=== PATIENT | female | born 1940 | race Caucasian/White ===

== ENCOUNTER 2018-03-31 10:32 | Inpatient (IN) ==
[2018-03-31] MEDS ORDERED: Sod Chloride 0.9% Inj 1,000 ML IV.SIG ONE (15:59)
--- NOTE | 2018-03-31 16:05 | ED ---
HPI General Chief Complaint: Respiratory Symptoms Stated Complaint: resp complaint/Vomiting/diarrhea/abd pain Time Seen by Provider: 03/31/18 15:40 Source: patient Mode of arrival: ambulatory Limitations: no limitations History of Present Illness HPI narrative: Patient states she has no known drug allergy She does have a history of rheumatoid arthritis and hypothyroidism Patient is on methotrexate for rheumatoid arthritis, has no primary care physician in the area. They are visiting from [place] Patient states that last week she started having a runny nose sore throat cough eventually although symptoms are improved except for the cough which went from dry to productive of yellow-green sputum. Then on Friday she started having nausea vomiting and diarrhea. And on Friday the patient noticed a lump on her right lower abdomen which was tender to palpation. MD complaint: Reports abdominal pain Onset (ago): day(s) Pain Consistency: intermittent Location: Reports RLQ Severity: moderate Severity scale (1-10): 5 Quality: Reports cramping Radiation: Reports none Migration to: Reports no migration Relieving factors: nothing Exacerbating factors: nothing Associated symptoms: Reports nausea, vomiting and diarrhea Related Data Home Medications Medication Instructions Recorded Confirmed folic acid 5 mg PO DAILY 03/31/18 03/31/18 hydroxychloroquine 200 mg PO DAILY 03/31/18 03/31/18 ibuprofen 600 mg PO BID 03/31/18 03/31/18 levothyroxine 75 mcg PO DAILY 03/31/18 03/31/18 ranitidine HCl 150 mg PO BID 03/31/18 03/31/18 Allergies Allergy/AdvReac Type Severity Reaction Status Date / Time No Known Allergies Allergy Verified 03/31/18 16:14 Review of Systems ROS: all other systems reviewed are negative PMFSH History History Provided By: Patient Medical History Medical History Hypothyroidism (Acute) Surgical History Surgical History Hx of tonsillectomy (Acute) Social History Social History Second Hand Smoke Exposure: No Smoking Status: Never smoker How Often Do You Have a Drink Containing Alcohol: Never Recent Travel in [facility] within the Last 8 Weeks: No Recent Out of Country Travel within the Last 8 Weeks: No Exam Narrative Exam Narrative: GENERAL: Well-nourished, well-developed patient in no apparent distress. SKIN: Warm and dry. HEAD: Atraumatic. Normocephalic. EYES: Pupils equal and round. No scleral icterus. No injection or drainage. ENT: No nasal bleeding or discharge. Mucous membranes pink and moist. NECK: Trachea midline. No JVD. CARDIOVASCULAR: Regular rate and rhythm. no rubs or gallops RESPIRATORY: No accessory muscle use. Mild rhonchi bilateral with occasional wheezes. Breath sounds equal bilaterally. GASTROINTESTINAL: Abdomen soft, non-tender, nondistended. No rebound or guarding... However firm tender lump just superior to the right inguinal region , MUSCULOSKELETAL: Extremities without clubbing, cyanosis, or edema. No obvious deformities. NEUROLOGICAL: Awake and alert. No obvious cranial nerve deficits. Motor grossly within normal limits. Five out of 5 muscle strength in the arms and legs. Normal speech. PSYCHIATRIC: Appropriate mood and affect; insight and judgment normal. Course Reevaluation(s) Reevaluation #1: I reviewed the patient's history, exam and laboratory testing. The patient has been seen by Dr. Byrd the surgeon. He has reduce the patient's hernia. He does not feel that this is strangulated. He does agree that it initially was incarcerated but he was able to reduce it with minimal effort. He does not feel the patient requires emergent surgery. He would like the patient to be admitted to the hospital and he will reevaluate the patient. He anticipates the patient to progress her diet and so long as she is eating, urinating and stooling he feels that she will most likely be able to be discharged in the morning. Time: 20:19 Reevaluation #2: I discussed the case with Dr. Morton who is agreed to admit the patient. Review of the chest x-ray does show bilateral pulmonary infiltrates. Patient has had a reduction of her incarcerated hernia. The patient will continue with antibiotics for her pneumonia and will have serial exams and follow-up by general surgery. Time: 21:27 Initial Documented Vital Signs Temperature 97.8 F 03/31/18 11:07 Pulse Rate 69 03/31/18 11:07 Respiratory Rate 12 03/31/18 11:07 Blood Pressure 159/68 H 03/31/18 11:07 Pulse Oximetry 96 03/31/18 11:07 Last Documented Vital Signs Temperature 97.8 F 03/31/18 11:07 Pulse Rate 79 03/31/18 19:22 Respiratory Rate 18 03/31/18 18:15 Blood Pressure 143/67 H 03/31/18 19:22 Pulse Oximetry 96 03/31/18 19:22 Medical Decision Making MDM Narrative Medical decision making narrative: Patient initially seen and evaluated by physician in triage who ordered work up. Patient has been transferred to medical pod where I have reassessed patient and reviewed results.On evaluation belief is that this patient had a viral syndrome which since has deteriorated to a bacterial bronchitis. Likely this bacterial bronchitis is secondary to atypical bacterial pathogen which may contribute with her GI symptoms. However the CT abdomen and pelvis is being performed to evaluate that firm lump on the right lower quadrant region to rule out incarcerated hernia versus lymphadenopathy versus mass Patient initially seen and evaluated by physician in triage who ordered work up. Patient has been transferred to medical pod where I have reassessed patient and reviewed results. CBC shows leukocytosis with white count 24, otherwise unremarkable. CMP is unremarkable. Lactic acid is within normal limits. CT of the abdomen and pelvis with IV contrast shows right inguinal hernia containing fat and a small bowel loop with decompressed distal small bowel and dilated loops of small bowel proximal to this point. Small amount of free fluid is seen in the pelvis. Patient is reassessed and the inguinal hernia is mildly erythematous, warm to touch and firm. 18:[address] Castro general surgeon on-call regarding the patient 's presentation and CT findings. He reports he will come in to see the patient. Patient signed out to Lazaro FLOWERS who will assume care of the patient and disposition pending evaluation by general surgeon Medical Screen Exam Complete: Yes Emergency Medical Condition: Yes Lab Data Result diagrams: 03/31/18 16:22 03/31/18 16:22 Lab Results 03/31/18 03/31/18 03/31/18 Range/Units 16:22 16:22 16:50 WBC 24.0 H (4.0-11.0) th/mm3 RBC 3.78 L (4.00-5.30) mil/mm3 Hgb 12.6 (11.6-15.3) gm/dL Hct 35.9 (35.0-46.0) % MCV 94.8 (80.0-100.0) fL MCH 33.2 (27.0-34.0) pg MCHC 35.0 (32.0-36.0) % RDW 12.9 (11.6-17.2) % Plt Count 303 (150-450) th/mm3 MPV 7.9 (7.0-11.0) fL Prelim Diff (Auto) Slide review pending Neut % (Auto) 91.5 H (16.0-70.0) % Lymph % (Auto) 1.5 L (9.0-44.0) % [place] % (Auto) 6.8 (0.0-8.0) % Eos % (Auto) 0.0 (0.0-4.0) % Baso % (Auto) 0.2 (0.0-2.0) % Neut # (Auto) 21.9 H (1.8-7.7) th/mm3 Lymph # (Auto) 0.4 L (1.0-4.8) th/mm3 [place] # (Auto) 1.6 H (0.0-0.9) th/mm3 Eos # (Auto) 0.0 (0.0-0.4) th/mm3 Baso # (Auto) 0.1 (0.0-0.2) th/mm3 WBC Differential Manual diff final Seg Neuts % (Manual) 87 H (16-70) % Band Neuts % (Manual) 4 (0-6) % Lymphocytes % (Manual) 1 L (9-44) % Monocytes % (Manual) 8 (0-8) % Abs Neuts (Manual) 21.8 H (1.8-7.7) th/mm3 Differential Comment . Toxic Granulation 3+ H (None) Toxic Vacuolation Present H (None) Dohle Bodies Present H (None) Platelet Estimate Normal (Normal) Platelet Morphology Normal (Normal) Sodium 135 L (136-145) meq/L Potassium 4.1 (3.5-5.1) meq/L Chloride 99 (98-107) meq/L Carbon Dioxide 24.3 (21.0-32.0) meq/L Anion Gap 12 (5-15) meq/L BUN 19 H (7-18) mg/dL Creatinine 0.79 (0.50-1.00) mg/dL Estimated GFR 71 L (>89) mL/min Random Glucose 96 (74-106) mg/dL Lactic Acid 1.4 (0.4-2.0) mmol/L Calcium 8.8 (8.5-10.1) mg/dL Total Bilirubin 0.9 (0.2-1.0) mg/dL AST 21 (15-37) U/L ALT 14 (10-53) U/L Alkaline Phosphatase 102 (45-117) U/L Total Protein 7.1 (6.4-8.2) g/dL Albumin 2.8 L (3.4-5.0) g/dL Lipase 170 (73-393) U/L Imaging Data Radiologist's impression: Abdomen/Pelvis CT 03/31/18 15:59 CONCLUSION: 1. Right inguinal hernia containing fat and a small bowel loop with decompressed distal small bowel and dilated loops of small bowel proximal to this point. A small amount of free fluid is seen in the pelvis. Possibility of an incarcerated hernia should be considered. Chest X-Ray 03/31/18 18:24 CONCLUSION: Bilateral pulmonary infiltrates. Treatment and follow-up to resolution using serial radiographs. Discharge Plan Discharge Disposition Patient Disposition: ED Admit(ED Internal Use Only) Discharge Condition Condition: Stable Discharge Details Anticipated Discharge Date: 03/31/18 Diagnosis: Bilateral pneumonia, Incarcerated inguinal hernia Physicians Team ED Provider: Dhiraj Lr ED Midlevel Provider: Lazaro Ortiz Primary Care Provider: Primary Care Felyi,Kathy Rxs /Orders / Referrals /Forms Prescriptions: No Action folic acid 1 mg Tablet 5 mg PO DAILY RF: 0 ranitidine HCl 150 mg Capsule 150 mg PO BID RF: 0 hydroxychloroquine 200 mg Tablet 200 mg PO DAILY RF: 0 ibuprofen 600 mg Tablet 600 mg PO BID RF: 0 levothyroxine 75 mcg Capsule 75 mcg PO DAILY RF: 0 Discharge Interventions Interventions: Vital Signs Last Done: 03/31/18 19:22 Status ED Status: With Doctor
[2018-03-31 16:32] LABS: Baso # (Auto) 0.1 th/mm3 (0.0-0.2); Baso % (Auto) 0.2 % (0.0-2.0); Hematocrit 35.9 % (35.0-46.0); Hemoglobin 12.6 gm/dL (11.6-15.3); Lymph # (Auto) 0.4 th/mm3 (1.0-4.8); Lymph % (Auto) 1.5 % (9.0-44.0); Mean Corpuscular Hemoglobin 33.2 pg (27.0-34.0); Mean Corpuscular Volume 94.8 fL (80.0-100.0); Mean Platelet Volume 7.9 fL (7.0-11.0); Mono # (Auto) 1.6 th/mm3 (0.0-0.9); Mono % (Auto) 6.8 % (0.0-8.0); Neut # (Auto) 21.9 th/mm3 (1.8-7.7); Neut % (Auto) 91.5 % (16.0-70.0); Platelet Count 303 th/mm3 (150-450); Red Blood Count 3.78 mil/mm3 (4.00-5.30); Red Cell Distribution Width 12.9 % (11.6-17.2)
[2018-03-31] MEDS ORDERED: Levofloxacin 500 mg Premix Inj 500 MG/100 ML PIGGYBACK IV.SIG ONE (16:36)
[2018-03-31 16:51] LABS: Alanine Aminotransferase 14 U/L (10-53); Albumin 2.8 g/dL (3.4-5.0); Anion Gap 12 meq/L (5-15); Aspartate Aminotransferase 21 U/L (15-37); Blood Urea Nitrogen 19 mg/dL (7-18); Calcium 8.8 mg/dL (8.5-10.1); Carbon Dioxide 24.3 meq/L (21.0-32.0); Chloride 99 meq/L (98-107); Glomerular Filtration Rate 71 mL/min (>89); Glucose,Random 96 mg/dL (74-106); Lipase 170 U/L (73-393); Potassium 4.1 meq/L (3.5-5.1); Sodium 135 meq/L (136-145)
[2018-03-31 16:54] LABS: Alkaline Phosphatase 102 U/L (45-117); Total Protein 7.1 g/dL (6.4-8.2)
[2018-03-31 17:08] LABS: Lymphocytes 1 % (9-44); Monocytes 8 % (0-8); Platelet Estimate Normal (Normal); Platelet Morphology Normal (Normal); Toxic Granulation 3+
[2018-03-31 17:09] LABS: Dohle Bodies Present; Toxic Vacuolation Present
--- NOTE | 2018-03-31 17:41 | CT ---
EXAM DATE: 03/31/2018 5:33 PM EST AGE/SEX: 77 years / Female INDICATIONS: Abdominal pain. Firm mass in the right inguinal region. CLINICAL DATA: This is the patient's initial encounter. Patient reports that signs and symptoms have been present for 3 days and indicates a pain score of 7/10. MEDICAL/SURGICAL HISTORY: None. None. ORAL CONTRAST: No oral contrast ingested. RADIATION DOSE: 6.64 CTDI (mGy) COMPARISON: No prior exams available for comparison. TECHNIQUE: Multiple contiguous axial images were obtained through the abdomen and pelvis following b olus infusion of 75 ml Omnipaque 350 (iohexol) nonionic water-soluble contrast as a single exam dos e. No oral contrast ingested. Using automated exposure control and adjustment of the mA and/or kV ac cording to patient size, radiation dose was kept as low as reasonably achievable to obtain optimal di agnostic quality images. DICOM format image data is available electronically for review and comparis on. FINDINGS: The osseous structures are intact. No pleural or pericardial effusions are seen. Small hiatal hernia. Liver, gallbladder, kidneys, spleen, pancreas, bilateral adrenal glands are normal in appearance. At herosclerotic calcification of the aorta and iliac vessels are noted. Urinary bladder, uterus and adn exa are within normal limits. There is a small amount of free fluid in the pelvis. The distal small b owel loops are decompressed in the right lower quadrant. There is a loop of distal ileum which enters the right inguinal canal, and proximal to this point there are numerous dilated loops of small intes salty seen. The actual component within the right inguinal hernia defect measures 3.2 x 2.5 cm in AP t ransverse dimension. Review of lung windows demonstrate bronchiectasis, peribronchial thickening and patchy consolidation in the lower lobes. CONCLUSION: 1. Right inguinal hernia containing fat and a small bowel loop with decompressed distal small bowel and dilated loops of small bowel proximal to this point. A small amount of free fluid is seen in the pelvis. Possibility of an incarcerated hernia should be considered. Electronically signed by: Phi Du MD Board Certified Radiologist 03/31/2018 5:40 PM EST
[2018-03-31] MEDS ORDERED: Piperacil/Tazo 4.5 GM Premix 4.5 GM/100 ML BAG IV.SIG SCH (18:30)
--- NOTE | 2018-03-31 18:43 | XR ---
EXAM DATE: 03/31/2018 6:36 PM EST AGE/SEX: 77 years / Female INDICATIONS: Cough. CLINICAL DATA: This is the patient's initial encounter. Patient reports that signs and symptoms have been present for 1 week and indicates a pain score of 1/10. MEDICAL/SURGICAL HISTORY: None. None. COMPARISON: No prior exams available for comparison. FINDINGS: A single AP view of the chest demonstrates bilateral patchy infiltrates greater in the lower lobes Th e cardiomediastinal contours are unremarkable. Osseous structures are intact. CONCLUSION: Bilateral pulmonary infiltrates. Treatment and follow-up to resolution using serial radiographs. Electronically signed by: Zak Campbell MD Board Certified Radiologist 03/31/2018 6:42 PM EST
[2018-03-31] MEDS ORDERED: Bisacodyl 10 MG Supp RECTAL PRN (23:08)
[2018-03-31] MEDS ORDERED: Acetaminophen 325 MG Tablet PO PRN (23:08)
--- NOTE | 2018-03-31 23:19 | P.HPIM ---
History of Present Illness Primary Care Physician: No Primary Care Physician 77-year-old female with a past medical history significant for rheumatoid arthritis, hypothyroidism and GERD presents to the emergency department for the evaluation of productive cough, fever/chills and nausea/vomiting since Friday night. The patient reports that she started having upper respiratory symptoms on that progressed to a productive cough. She states that on Friday night she began to feel nauseated and had vomiting. She states she has been unable to keep anything down since that time with severe postprandial emesis. She states the abdominal pain was in her right lower quadrant. She denies any chest pain or shortness of breath. No focal neurologic deficits. Inpatient Certification Inpatient Certification: I certify that the inpatient services were ordered in accordance with Medicare regulations governing the order. This includes certification that hospital inpatient services are reasonable and necessary and in the case of services not specified as inpatient-only under 42 CFR 419.22(n), that they are appropriately provided as inpatient services in accordance to with the 2-midnight benchmark under 43 CFR 412.3(e) Estimated Total Length of Stay (Days): 3 Plans for Post Hospital Care: Home Review of Systems Review of Systems: all other systems reviewed are negative [facility] Medical History Medical History GERD (gastroesophageal reflux disease) (Acute) Hypothyroidism (Acute) Rheumatoid arthritis (Acute) Surgical History Surgical History Hx of tonsillectomy (Acute) Family History Family History Other No significant family history Social History Social History Second Hand Smoke Exposure: No Smoking Status: Never smoker How Often Do You Have a Drink Containing Alcohol: Never Recent Travel in [place] within the Last 8 Weeks: No Recent Out of Country Travel within the Last 8 Weeks: No Immunization History Tetanus Immunization: Unsure Medications and Allergies Allergies Allergy/AdvReac Type Severity Reaction Status Date / Time No Known Allergies Allergy Verified 03/31/18 16:14 Home Medications Medication Instructions Recorded Confirmed Type folic acid 5 mg PO DAILY 03/31/18 03/31/18 History hydroxychloroquine 200 mg PO DAILY 03/31/18 03/31/18 History ibuprofen 600 mg PO BID 03/31/18 03/31/18 History levothyroxine 75 mcg PO DAILY 03/31/18 03/31/18 History ranitidine HCl 150 mg PO BID 03/31/18 03/31/18 History Active Medications: Active Medications Acetaminophen (Tylenol) 650 mg PO Q4H PRN PRN Reason: Temp > 100.4 Al Hydroxide/Mg Hydroxide (Milk Of Magnesia Liq) 30 ml PO Q12H PRN PRN Reason: Mild Constipation Albuterol (Duoneb Neb (Prn)) 1 ampul NEB Q4HR NEB PRN PRN Reason: SOB/Wheezing Bisacodyl (Dulcolax Supp) 10 mg RECTAL DAILY PRN PRN Reason: SEVERE CONSITIPATION Folic Acid (Folic Acid) 5 mg PO DAILY JODIE Hydroxychloroquine Sulfate (Plaquenil) 200 mg PO DAILY JODIE Piperacillin/Tazobactam/Dextrose (Zosyn 4.5 Gm Premix) 4.5 gm in 100 mls @ 200 mls/hr IV.SIG ONCE JODIE Last Infusion: 03/31/18 21:50 Dose: Infused Levofloxacin/Dextrose (Levaquin 750 Mg Premix Inj) 150 mls @ 100 mls/hr IV.SIG Q24H JODIE Sodium Chloride (Ns Inj) 1,000 mls @ 70 mls/hr IV.CONT .[id number] JODIE Lactulose (Lactulose Liq) 30 ml PO DAILY PRN PRN Reason: SEVERE CONSITIPATION Non-Formulary Medication (Levothyroxine [Levothyroxine]) 75 mcg PO DAILY JODIE Non-Formulary Medication (Ranitidine Hcl [Ranitidine Hcl]) 150 mg PO BID JODIE Ondansetron HCl (Zofran Inj) 4 mg IV.PUSH Q6H PRN PRN Reason: NAUSEA OR VOMITING Senna/Docusate Sodium (Reyna-Colace) 1 tab PO BID [facility] Sennosides (Senokot) 17.2 mg PO Q12H PRN PRN Reason: Moderate Constipation Sodium Chloride (Ns Flush) 2 ml IV.FLUSH PRN PRN PRN Reason: FLUSH AFTER USING IV ACCESS Sodium Chloride (Ns Flush) 2 ml IV.FLUSH BID JODIE Sodium Chloride (Ns Flush) 2 ml IV.FLUSH PRN PRN PRN Reason: FLUSH AFTER USING IV ACCESS Physical Exam Vital signs: Vital Signs 03/31/18 11:07 03/31/18 18:15 03/31/18 19:22 Temperature 97.8 F Pulse Rate 69 81 79 Respiratory Rate 12 18 Blood Pressure 159/68 H 153/67 H 143/67 H Pulse Oximetry 96 94 L 96 Intake & Output 03/31/18 03/31/18 04/01/18 06:59 18:59 06:59 Intake Total 1200 / 1200 Balance 1200 / 1200 Weight 54.431 kg Intake: IV 1200 / 1200 Levaquin 500 mg Premix Inj 500 100 / 100 mg In 100 ml @ 100 mls/hr IV. SIG ONCE ONE Rx#:[id number] Zosyn 4.5 GM Premix 4.5 gm In 100 / 100 100 ml @ 200 mls/hr IV.SIG ONCE JODIE Rx#:[id number] Narrative: Gen.: No acute distress Head: Normocephalic. Atraumatic. EENT: Pupils equal round and reactive to light. Nose without drainage. Airway intact. Throat without injection. Cardiovascular: Regular rate and rhythm. No murmurs, rubs or gallops. Respiratory: Lungs clear to auscultation bilaterally. No wheezes or rhonchi. Abdomen: Soft, mildly tender to palpation with deep palpation in the right lower quadrant, nondistended. No peritoneal signs. No masses. Musculoskeletal: No gross deformities. No edema. Skin: No obvious rashes or erythema. Neuro: Sensory and motor grossly intact. Cranial nerves II through XII grossly intact. Results Labs CBC & Chem 7: 03/31/18 16:22 03/31/18 16:22 Imaging Impressions Abdomen/Pelvis CT 03/31/18 15:59 CONCLUSION: 1. Right inguinal hernia containing fat and a small bowel loop with decompressed distal small bowel and dilated loops of small bowel proximal to this point. A small amount of free fluid is seen in the pelvis. Possibility of an incarcerated hernia should be considered. Chest X-Ray 03/31/18 18:24 CONCLUSION: Bilateral pulmonary infiltrates. Treatment and follow-up to resolution using serial radiographs. Caprini VTE Risk Assessment Caprini VTE Risk Assessment: Moderate/High Risk (score >= 2) Caprini Risk Assessment Model: Point Value = 1 Point Value = 2 Point Value = 3 Point Value = 5 Age 41-60 Minor surgery BMI > 25 kg/m2 Swollen legs Varicose veins or History of unexplained or recurrent spontaneous Oral contraceptives or hormone replacement Sepsis (< 1 month) Serious lung disease, including pneumonia (< 1 month) Abnormal pulmonary function Acute myocardial infarction Congestive heart failure (< 1 month) History of inflammatory bowel disease Medical patient at bed rest Age 61-74 Arthroscopic surgery Major open surgery (> 45 min) Laparoscopic surgery (> 45 min) Malignancy Confined to bed (> 72 hours) Immobilizing plaster cast Central venous access Age >= 75 History of VTE Family history of VTE Factor V Leiden Prothrombin [id number] Lupus anticoagulant Anticardiolipin antibodies Elevated serum homocysteine Heparin-induced thrombocytopenia Other congenital or acquired thrombophilia Stroke (< 1 month) Elective arthroplasty Hip, pelvis, or leg fracture Acute spinal cord injury (< 1 month) Prophylaxis Regimen: Total Risk Factor Score Risk Level Prophylaxis Regimen 0-1 Low Early ambulation 2 Moderate Order ONE of the following: *Sequential Compression Device (SCD) *Heparin 5000 units SQ BID 3-4 Higher Order ONE of the following medications: *Heparin 5000 units SQ TID *Enoxaparin/Lovenox 40 mg SQ daily (WT < 150 kg, CrCl > 30 mL/min) *Enoxaparin/Lovenox 30 mg SQ daily (WT < 150 kg, CrCl > 10-29 mL/min) *Enoxaparin/Lovenox 30 mg SQ BID (WT < 150 kg, CrCl > 30 mL/min) AND/OR *Sequential Compression Device (SCD) 5 or more Highest Order ONE of the following medications: *Heparin 5000 units SQ TID (Preferred with Epidurals) *Enoxaparin/Lovenox 40 mg SQ daily (WT < 150 kg, CrCl > 30 mL/min) *Enoxaparin/Lovenox 30 mg SQ daily (WT < 150 kg, CrCl > 10-29 mL/min) *Enoxaparin/Lovenox 30 mg SQ BID (WT < 150 kg, CrCl > 30 mL/min) AND *Sequential Compression Device (SCD) Assessment and Plan Plan Assessment/plan: 1. Incarcerated inguinal hernia CT of the abdomen/pelvis shows right inguinal hernia containing fat and small bowel loops with decompressed distal small bowel and dilated loops of small bowel proximal to that point Reduced in the emergency department General surgery consulted, appreciate recommendations Per general surgery recommendations advance diet as tolerated 2. Bilateral pneumonia Chest x-ray shows bilateral pulmonary infiltrates IV Levaquin 3. Hypothyroidism/GERD/rheumatoid arthritis Continue home medications FEN Per general surgery recommendations, advance diet as tolerated Electrolytes: Monitor and replete as needed Holding pharmacologic anticoagulation until cleared by general surgery
[2018-04-01] MEDS: Sod Chloride 0.9% Inj 1,000 ML IV.CONT SCH ×2 (00:27→15:11)
--- NOTE | 2018-04-01 02:36 | MB ---
cc: Fernando Castro MD DATE: 03/31/2018 PERSON REQUESTING CONSULTATION: Dhiraj Lr MD REASON FOR CONSULTATION: Incarcerated right inguinal hernia. HISTORY OF PRESENT ILLNESS: The patient is a 77-year-old female who is on vacation in [place] from [place]. She developed 2-3 days of nausea and vomiting as well as some crampy abdominal pain. The patient thought this was some sort of food poisoning and continued her trip. This continued to worsen until that led to present to the emergency department for further evaluation. After evaluation, including a CT scan, she was found to have a right inguinal hernia containing a loop of small bowel. The patient denies any known history of right inguinal hernia or previous incarceration. She denies fevers, chills, night sweats, chest pain, shortness of breath or any other complaints. REVIEW OF SYSTEMS: A 12-point review of systems was conducted with the patient and is negative except for the pertinent positives mentioned above in history of present illness. PAST MEDICAL HISTORY: Hypothyroidism, rheumatoid arthritis. PAST SURGICAL HISTORY: Tonsillectomy. ALLERGIES: NO KNOWN DRUG ALLERGIES. MEDICATIONS: 1. Folic acid. 2. Hydroxychloroquine. 3. Levothyroxine. 4. Ibuprofen. 5. Ranitidine. SOCIAL HISTORY: The patient denies alcohol, tobacco or illicit drug use. FAMILY HISTORY: Reviewed and noncontributory. PHYSICAL EXAMINATION: VITAL SIGNS: Temperature 97.8 degrees, pulse 69, respiratory rate 12, blood pressure 159/68, O2 saturation 96%. GENERAL: The patient is a well-developed, well-nourished, female in no acute distress. HEENT: Head is normocephalic, atraumatic. Pupils are round and reactive to accommodate and light. Sclerae are anicteric. Oral cavity is clear. Airway is patent. NECK: Supple. No JVD. LUNGS: Breath sounds present bilaterally and nonlabored breathing pattern. HEART: Regular rate and rhythm. No murmurs. ABDOMEN: Soft, nondistended and nontender to palpation. No organomegaly. No ascites. Normal bowel sounds. Hernias, the patient has a small 2-3 cm bulge in the right inguinal canal consistent with a hernia. With pressure and some manipulation to assess the reducibility, this reduced after about 10 seconds of pressure. Hernia defect is minimal after reduction and is non palpable. NEUROLOGIC: The patient is awake, alert and oriented x3. Nonfocal peripheral exam. Cranial nerves 2-12 are grossly intact. LABORATORY VALUES: White blood cell count 24, hemoglobin 12.6. ASSESSMENT AND PLAN: The patient is a 77-year-old female who presented with nausea, vomiting for 3 days. He was found to have inguinal hernia. This was not reduced by the ER due to concern of it being out for 3 days. There is a concern of bowel viability. I do not feel the patient on clinical exam has a high risk for bowel ischemia and hernia and I felt like reduction is in the patient's best interest. I did discuss this with the patient and her and they are in agreement. They would like to reduce the hernia and undergo observation. As they are from [place], they would not like to undergo surgery here. The hernia was reduced when it was initially evaluated and after I had a discussion with them, it was fully reduced and I felt that the patient tolerated this well. We will recommend the patient stay at least for 24 hours, just for observation and do serial abdominal examinations. Surgery will follow along with the patient. Thank you very much for this consultation. Fernando Castro MD AWG/sv , 12:36 AM , 12:45 AM
[2018-04-01 05:21] LABS: Baso % (Auto) 0.1 % (0.0-2.0); Hematocrit 34.2 % (35.0-46.0); Hemoglobin 11.5 gm/dL (11.6-15.3); Lymph # (Auto) 0.6 th/mm3 (1.0-4.8); Lymph % (Auto) 2.5 % (9.0-44.0); Mean Corpuscular HGB Conc 33.6 % (32.0-36.0); Mean Corpuscular Hemoglobin 31.7 pg (27.0-34.0); Mean Corpuscular Volume 94.4 fL (80.0-100.0); Mean Platelet Volume 8.7 fL (7.0-11.0); Mono # (Auto) 1.5 th/mm3 (0.0-0.9); Mono % (Auto) 6.7 % (0.0-8.0); Neut # (Auto) 20.5 th/mm3 (1.8-7.7); Neut % (Auto) 90.7 % (16.0-70.0); Platelet Count 324 th/mm3 (150-450); Red Blood Count 3.62 mil/mm3 (4.00-5.30); White Blood Count 22.7 th/mm3 (4.0-11.0)
[2018-04-01 05:52] LABS: Calcium 8.3 mg/dL (8.5-10.1); Potassium 3.5 meq/L (3.5-5.1)
[2018-04-01] MEDS ORDERED: Non-Formulary Drug (Levothyroxine [Levothyroxine] 75 MCG) PO SCH (09:00)
[2018-04-01] MEDS: Folic Acid 1 MG Tablet PO SCH (11:55)
[2018-04-01] MEDS: Senna/Docusate Sodium 8.6/50 MG Tablet PO SCH ×2 (11:55→20:19)
[2018-04-01] MEDS: Hydroxychloroquine 200 MG Tablet PO SCH (12:27)
--- NOTE | 2018-04-01 12:36 | P.PNIM ---
Subjective Interval history: Follow-up for pneumonia On room air, mildly short of breath, still coughing but better, yellowish secretions. No fever or chills. Still nauseated, vomited, no bowel movement or gas since hernia reduction. Mild right lower quadrant abdominal pain. Physical Exam Vital signs: Vital Signs 03/31/18 18:15 03/31/18 19:22 04/01/18 00:37 Pulse Rate 81 79 74 Respiratory Rate 18 Blood Pressure 153/67 H 143/67 H 146/65 H Pulse Oximetry 94 L 96 Intake & Output 03/31/18 04/01/18 04/01/18 18:59 06:59 18:59 Intake Total 1200 / 1200 Balance 1200 / 1200 Weight 54.431 kg Intake: IV 1200 / 1200 Levaquin 500 mg Premix Inj 500 100 / 100 mg In 100 ml @ 100 mls/hr IV. SIG ONCE ONE Rx#:[id number] Zosyn 4.5 GM Premix 4.5 gm In 100 / 100 100 ml @ 200 mls/hr IV.SIG ONCE JODIE Rx#:[id number] Narrative: Not in distress Pupils equal round reactive, pink conjunctival On room air Regular rate and rhythm, no murmurs Crackles in the right base, no wheezing or rhonchi Soft, abdomen quadrant on deep palpation, nondistended, no peritoneal signs, no guarding No edema Alert awake and oriented x3, no focal deficits. Cranial nerves intact. Results Labs CBC & Chem 7: 04/01/18 03:55 04/01/18 03:55 Labs: Microbiology 03/31/18 16:40 Blood - Peripheral Aerobic Blood Culture - Preliminary No growth in 1 day 03/31/18 16:40 Blood - Peripheral Anaerobic Blood Culture - Preliminary No growth in 1 day 03/31/18 16:50 Blood - Peripheral Aerobic Blood Culture - Preliminary No growth in 1 day 03/31/18 16:50 Blood - Peripheral Anaerobic Blood Culture - Preliminary No growth in 1 day 03/31/18 16:50 Nasal Wash Influenza Types A,B Antigen - Final Negative for FLU A and B antigen Infection due to influenza A or B cannot be ruled out since the antigen present in the sample may be below the detection limit of the test. Imaging Imaging: Impressions Abdomen/Pelvis CT 03/31/18 15:59 CONCLUSION: 1. Right inguinal hernia containing fat and a small bowel loop with decompressed distal small bowel and dilated loops of small bowel proximal to this point. A small amount of free fluid is seen in the pelvis. Possibility of an incarcerated hernia should be considered. Chest X-Ray 03/31/18 18:24 CONCLUSION: Bilateral pulmonary infiltrates. Treatment and follow-up to resolution using serial radiographs. Assessment and Plan Plan 77-year-old female with a past medical history significant for rheumatoid arthritis, hypothyroidism and GERD presents to the emergency department for the evaluation of productive cough, fever/chills and nausea/vomiting since Friday night. Incarcerated inguinal hernia - CT of the abdomen/pelvis shows right inguinal hernia containing fat and small bowel loops with decompressed distal small bowel and dilated loops of small bowel proximal to that point. General surgery consulted, status post full reduction, still not tolerating diet, still nauseated, discussed with surgery, observe 1 more day. Diet per surgery. Bilateral pneumonia - Chest x-ray shows bilateral pulmonary infiltrates, on IV Levaquin, switch to oral on discharge. On room air. Leukocytosis improving. Recheck CBC and BMP tomorrow. Hypothyroidism/GERD/rheumatoid arthritis - Continue home medications FEN Per general surgery recommendations, advance diet as tolerated Electrolytes: Monitor and replete as needed Discharge once okay with general surgery.
--- NOTE | 2018-04-01 14:45 | P.PNGS ---
Subjective Interval history: Resting in bed Had multiple episodes of nausea/vomiting Physical Exam Vital signs: Vital Signs 03/31/18 18:15 03/31/18 19:22 04/01/18 00:37 Pulse Rate 81 79 74 Respiratory Rate 18 Blood Pressure 153/67 H 143/67 H 146/65 H Pulse Oximetry 94 L 96 Intake & Output 03/31/18 04/01/18 04/01/18 18:59 06:59 18:59 Intake Total 1200 / 1200 Output Total 200 / 200 Balance 1200 / 1200 -200 / -200 Weight 54.431 kg Intake: IV 1200 / 1200 Levaquin 500 mg Premix Inj 500 100 / 100 mg In 100 ml @ 100 mls/hr IV. SIG ONCE ONE Rx#:[id number] Zosyn 4.5 GM Premix 4.5 gm In 100 / 100 100 ml @ 200 mls/hr IV.SIG ONCE JODIE Rx#:[id number] Output: Urine 200 / 200 Narrative: Alert and awake Abd: soft; RIH continue to be reduced. Tender in RIGHT groin. Results - Labs 04/01/18 03:55 04/01/18 03:55 Laboratory Results - last 24 hr 03/31/18 03/31/18 03/31/18 16:22 16:22 16:50 WBC 24.0 H RBC 3.78 L Hgb 12.6 Hct 35.9 MCV 94.8 MCH 33.2 MCHC 35.0 RDW 12.9 Plt Count 303 MPV 7.9 Prelim Diff (Auto) Slide review pending Neut % (Auto) 91.5 H Lymph % (Auto) 1.5 L Mccreary % (Auto) 6.8 Eos % (Auto) 0.0 Baso % (Auto) 0.2 Neut # (Auto) 21.9 H Lymph # (Auto) 0.4 L M[place]re[place] # (Auto) 1.6 H Eos # (Auto) 0.0 Baso # (Auto) 0.1 WBC Differential Manual diff final Seg Neuts % (Manual) 87 H Band Neuts % (Manual) 4 Lymphocytes % (Manual) 1 L Monocytes % (Manual) 8 Abs Neuts (Manual) 21.8 H Differential Comment . Toxic Granulation 3+ H Toxic Vacuolation Present H Dohle Bodies Present H Platelet Estimate Normal Platelet Morphology Normal Sodium 135 L Potassium 4.1 Chloride 99 Carbon Dioxide 24.3 Anion Gap 12 BUN 19 H Creatinine 0.79 Estimated GFR 71 L Random Glucose 96 Lactic Acid 1.4 Calcium 8.8 Total Bilirubin 0.9 AST 21 ALT 14 Alkaline Phosphatase 102 Total Protein 7.1 Albumin 2.8 L Lipase 170 04/01/18 04/01/18 03:55 03:55 WBC 22.7 H RBC 3.62 L Hgb 11.5 L Hct 34.2 L MCV 94.4 MCH 31.7 MCHC 33.6 RDW 13.0 Plt Count 324 MPV 8.7 Prelim Diff (Auto) Neut % (Auto) 90.7 H Lymph % (Auto) 2.5 L M[place]re[place] % (Auto) 6.7 Eos % (Auto) 0.0 Baso % (Auto) 0.1 Neut # (Auto) 20.5 H Lymph # (Auto) 0.6 L M[place]re[place] # (Auto) 1.5 H Eos # (Auto) 0.0 Baso # (Auto) 0.0 WBC Differential . Seg Neuts % (Manual) Band Neuts % (Manual) Lymphocytes % (Manual) Monocytes % (Manual) Abs Neuts (Manual) Differential Comment Auto diff final Toxic Granulation Toxic Vacuolation Dohle Bodies Platelet Estimate Platelet Morphology Sodium 137 Potassium 3.5 Chloride 103 Carbon Dioxide 23.0 Anion Gap 11 BUN 18 Creatinine 0.70 Estimated GFR 81 L Random Glucose 78 Lactic Acid Calcium 8.3 L Total Bilirubin AST ALT Alkaline Phosphatase Total Protein Albumin Lipase - Imaging Imaging: ITS Impressions Abdomen/Pelvis CT 03/31/18 15:59 CONCLUSION: 1. Right inguinal hernia containing fat and a small bowel loop with decompressed distal small bowel and dilated loops of small bowel proximal to this point. A small amount of free fluid is seen in the pelvis. Possibility of an incarcerated hernia should be considered. Chest X-Ray 03/31/18 18:24 CONCLUSION: Bilateral pulmonary infiltrates. Treatment and follow-up to resolution using serial radiographs. Assessment and Plan - Plan 77 year old female with pneumonia; RIGHT inguinal hernia---reduced at bedside -RIGHT inguinal hernia continues to be reduced -Likely has ileus -Okay for clear liquids as long as no nausea/vomiting; advance diet slow as bowel activity returns -OOB as tolerated -Primary team managing pneumonia
[2018-04-01] MEDS: Levothyroxine 75 MCG Tablet PO SCH (15:09)
[2018-04-01] MEDS: Famotidine 20 MG Tablet PO SCH ×2 (15:10→20:19)
[2018-04-02] MEDS: Sod Chloride 0.9% Inj 1,000 ML IV.CONT SCH (05:25)
[2018-04-02] MEDS: Levothyroxine 75 MCG Tablet PO SCH (06:16)
--- NOTE | 2018-04-02 06:29 | ECG ---
Date Performed: 03/31/2018 Time Performed: 19:09:20 PTAGE: 77 years EKG: Sinus rhythm WITH OCCASIONAL VENTRICULAR PREMATURE COMPLEXES MARKED LEFT AXIS DEVIATION LOW QRS VOLTAGE ABNORMAL ECG NO PREVIOUS TRACING DOCTOR: Kip Hopkins Interpretating Date/Time 04/02/2018 06:27:15
[2018-04-02] MEDS: Folic Acid 1 MG Tablet PO SCH (08:56)
[2018-04-02] MEDS: Senna/Docusate Sodium 8.6/50 MG Tablet PO SCH ×2 (08:56→23:08)
[2018-04-02] MEDS: Famotidine 20 MG Tablet PO SCH ×2 (08:56→23:08)
[2018-04-02] MEDS: Hydroxychloroquine 200 MG Tablet PO SCH (08:56)
[2018-04-02 09:59] LABS: Baso # (Auto) 0.1 th/mm3 (0.0-0.2); Baso % (Auto) 0.3 % (0.0-2.0); Eos % (Auto) 0.1 % (0.0-4.0); Hematocrit 36.9 % (35.0-46.0); Hemoglobin 12.1 gm/dL (11.6-15.3); Lymph % (Auto) 4.9 % (9.0-44.0); Mean Corpuscular HGB Conc 32.7 % (32.0-36.0); Mean Corpuscular Volume 94.5 fL (80.0-100.0); Mean Platelet Volume 8.8 fL (7.0-11.0); Mono # (Auto) 1.4 th/mm3 (0.0-0.9); Mono % (Auto) 6.9 % (0.0-8.0); Neut # (Auto) 17.9 th/mm3 (1.8-7.7); Neut % (Auto) 87.8 % (16.0-70.0); Platelet Count 403 th/mm3 (150-450); Red Blood Count 3.91 mil/mm3 (4.00-5.30); Red Cell Distribution Width 13.2 % (11.6-17.2); White Blood Count 20.4 th/mm3 (4.0-11.0)
[2018-04-02 10:29] LABS: Potassium 2.9 meq/L (3.5-5.1)
[2018-04-02 10:55] LABS: Lymphocytes 6 % (9-44); Metamyelocytes 1 % (0-1); Monocytes 10 % (0-8); Myelocytes 2 % (0-0); Platelet Estimate Normal (Normal); Platelet Morphology Normal (Normal); Toxic Granulation 1+
[2018-04-02] MEDS: Potassium Chloride Inj 10 MEQ in Sod Chloride 0.9% Inj 1,000 ML IV.SIG SCH (12:02)
[2018-04-02] MEDS: Potassium Chlor 10 mEq Premix 10 MEQ/100 ML PIGGYBACK IV.SIG SCH ×3 (12:02→14:17)
--- NOTE | 2018-04-02 14:16 | P.PNIM ---
Subjective Interval history: patient seen on follow up today and still with nausea and emesis ( non bloody) surgery notified and we will place NGT to [facility] will check abd x-ray no fever today she reports no bowel movement says basically no flatus Physical Exam Vital signs: Vital Signs 04/01/18 16:00 04/01/18 20:00 04/02/18 00:00 Temperature 98.8 F 98.5 F 98.8 F Pulse Rate 79 84 78 Respiratory Rate 18 20 20 Blood Pressure 135/63 132/60 115/58 L Pulse Oximetry 96 96 93 L 04/02/18 04:00 04/02/18 08:00 04/02/18 12:00 Temperature 99.2 F 97.5 F L 98.3 F Pulse Rate 75 97 H 77 Respiratory Rate 22 18 18 Blood Pressure 120/56 L 105/56 L 129/61 Pulse Oximetry 93 L 88 L 91 L 04/02/18 13:33 Temperature Pulse Rate Respiratory Rate 18 Blood Pressure Pulse Oximetry 96 Intake & Output 04/01/18 04/02/18 04/02/18 18:59 06:59 18:59 Intake Total 1150 / 1150 1960 / 1960 850 / 850 Output Total 200 / 200 Balance 950 / 950 1959 / 1959 850 / 850 Weight 54.431 kg 56.4 kg Intake: IV 1150 / 1150 1000 / 1000 850 / 850 NS Inj 1,000 ML @ 70 mls/hr IV. 1000 / 1000 1000 / 1000 750 / 750 CONT .[id number] JODIE Rx#:[id number] Levaquin 750 mg Premix Inj 150 150 / 150 ML @ 100 mls/hr IV.SIG Q24H JODIE Rx#:[id number] KCl 10 mEq Premix Inj 10 meq In 100 / 100 100 ml @ 100 mls/hr IV.SIG Q1H JODIE Rx#:[id number] Oral 960 / 960 Output: Urine 200 / 200 Other: # Voids 2 Date of Last Bowel Movement 03/29/18 Weight On Admission 54.431 kg gen: nad heent: eomi cvs: s1/s2 resp: exp rhonchi gi: soft inguinal hernia no guarding or rebound, non distended, no tympany ext: no edema, 2+ dpp Results Labs CBC & Chem 7: 04/02/18 07:33 04/02/18 07:33 Labs: Microbiology 03/31/18 16:40 Blood - Peripheral Aerobic Blood Culture - Preliminary No growth in 2 days 03/31/18 16:40 Blood - Peripheral Anaerobic Blood Culture - Preliminary No growth in 2 days 03/31/18 16:50 Blood - Peripheral Aerobic Blood Culture - Preliminary No growth in 2 days 03/31/18 16:50 Blood - Peripheral Anaerobic Blood Culture - Preliminary No growth in 2 days Assessment and Plan Plan 77-year-old female with a past medical history significant for rheumatoid arthritis, hypothyroidism and GERD presents to the emergency department for the evaluation of productive cough, fever/chills and nausea/vomiting found to have inguinal hernia on examination evaluated by surgery with reduction but continues to have episodes of nausea and vomiting. General surgery: Incarcerated inguinal hernia - CT of the abdomen/pelvis shows right inguinal hernia containing fat and small bowel loops with decompressed distal small bowel and dilated loops of small bowel proximal to that point. General surgery consulted and following - 04/02 still with episode of nausea and vomiting, will need NGT placed now and check abdominal x-ray - surgery notified and asked to follow up - npo status and IVF hydration with D5Ns Infectious disease: Bilateral pneumonia - Chest x-ray shows bilateral pulmonary infiltrates, on IV Levaquin, switch to oral on discharge. endocrinology: Hypothyroidism -levothroxyine FEN Per general surgery recommendations, npo with IVF Discharge once okay with general surgery. Progress Note: Quality VTE Deep Vein Thrombosis/Pulmonary Embolism Present on Admission: No
--- NOTE | 2018-04-02 15:17 | P.PNGS ---
Subjective Patient reports: vomiting Physical Exam Vital signs: Vital Signs 04/01/18 16:00 04/01/18 20:00 04/02/18 00:00 Temperature 98.8 F 98.5 F 98.8 F Pulse Rate 79 84 78 Respiratory Rate 18 20 20 Blood Pressure 135/63 132/60 115/58 L Pulse Oximetry 96 96 93 L 04/02/18 04:00 04/02/18 08:00 04/02/18 12:00 Temperature 99.2 F 97.5 F L 98.3 F Pulse Rate 75 97 H 77 Respiratory Rate 22 18 18 Blood Pressure 120/56 L 105/56 L 129/61 Pulse Oximetry 93 L 88 L 91 L 04/02/18 13:33 Temperature Pulse Rate Respiratory Rate 18 Blood Pressure Pulse Oximetry 96 Intake & Output 04/01/18 04/02/18 04/02/18 18:59 06:59 18:59 Intake Total 1150 / 1150 1960 / 1960 950 / 950 Output Total 200 / 200 Balance 950 / 950 1959 / 1960 950 / 950 Weight 54.431 kg 56.4 kg Intake: IV 1150 / 1150 1000 / 1000 950 / 950 NS Inj 1,000 ML @ 70 mls/hr IV. 1000 / 1000 1000 / 1000 750 / 750 CONT .[id number] JODIE Rx#:[id number] Levaquin 750 mg Premix Inj 150 150 / 150 ML @ 100 mls/hr IV.SIG Q24H JODIE Rx#:[id number] KCl 10 mEq Premix Inj 10 meq In 200 / 200 100 ml @ 100 mls/hr IV.SIG Q1H JODIE Rx#:[id number] Oral 960 / 960 Output: Urine 200 / 200 Other: # Voids 2 Date of Last Bowel Movement 03/29/18 Weight On Admission 54.431 kg - Routine Abdominal Exam Present: soft (mild ttp right inguinal area, no rebound, no guarding) Results - Labs 04/02/18 07:33 04/02/18 07:33 Laboratory Results - last 24 hr 04/02/18 04/02/18 07:33 07:33 WBC 20.4 H RBC 3.91 L Hgb 12.1 Hct 36.9 MCV 94.5 MCH 31.0 MCHC 32.7 RDW 13.2 Plt Count 403 MPV 8.8 Prelim Diff (Auto) Slide review pending Neut % (Auto) 87.8 H Lymph % (Auto) 4.9 L [place] % (Auto) 6.9 Eos % (Auto) 0.1 Baso % (Auto) 0.3 Neut # (Auto) 17.9 H Lymph # (Auto) 1.0 [place] # (Auto) 1.4 H Eos # (Auto) 0.0 Baso # (Auto) 0.1 WBC Differential Manual diff final Seg Neuts % (Manual) 73 H Band Neuts % (Manual) 8 H Lymphocytes % (Manual) 6 L Monocytes % (Manual) 10 H Metamyelocytes % (Man) 1 Myelocytes % (Man) 2 H Abs Neuts (Manual) 17.1 H Differential Comment . Toxic Granulation 1+ H Platelet Estimate Normal Platelet Morphology Normal Sodium 138 Potassium 2.9 L* Chloride 103 Carbon Dioxide 23.0 Anion Gap 12 BUN 15 Creatinine 0.83 Estimated GFR 67 L Random Glucose 90 Calcium 8.0 L - Imaging Imaging: ITS Impressions Abdomen/Pelvis CT 03/31/18 15:59 CONCLUSION: 1. Right inguinal hernia containing fat and a small bowel loop with decompressed distal small bowel and dilated loops of small bowel proximal to this point. A small amount of free fluid is seen in the pelvis. Possibility of an incarcerated hernia should be considered. Chest X-Ray 03/31/18 18:24 CONCLUSION: Bilateral pulmonary infiltrates. Treatment and follow-up to resolution using serial radiographs. Assessment and Plan - Plan 77 year old female with pneumonia; RIGHT inguinal hernia---reduced at bedside -RIGHT inguinal hernia continues to be reduced -Likely has ileus -NG placed to sxn -OOB as tolerated -Primary team managing pneumonia - obtain SBFT tomorrow - Correct k 2.9
[2018-04-02] MEDS: Dextrose 5%/NaCl 0.45% Inj 1,000 ML IV.CONT SCH (16:21)
--- NOTE | 2018-04-02 19:52 | XR ---
EXAM DATE: 04/02/2018 7:28 PM EST AGE/SEX: 77 years / Female INDICATIONS: Epigastric pain CLINICAL DATA: This is the patient's initial encounter. Patient reports that signs and symptoms have been present for 3 days and indicates a pain score of 0/10. MEDICAL/SURGICAL HISTORY: None. None. COMPARISON: No prior exams available for comparison. FINDINGS: Minimal bibasilar parental changes are noted. Minimal gas distention in the lower small bowel small bowel dilated to 3.2 cm. Minimal gas is present in the colon. Nasogastric is not visualized. CONCLUSION: Nonspecific bowel gas pattern. Nasogastric tube is not visualized. Electronically signed by: Praveen Hutton MD Board Certified Radiologist 04/02/2018 7:51 PM EST
[2018-04-03] MEDS ORDERED: Phenol 1.4% 180 ML Spray Bottle OROPHARYNG PRN (00:04)
[2018-04-03] MEDS: Potassium Chloride Inj 10 MEQ in Sod Chloride 0.9% Inj 1,000 ML IV.SIG SCH ×2 (03:44→16:05)
[2018-04-03] MEDS: Dextrose 5%/NaCl 0.45% Inj 1,000 ML IV.CONT SCH ×3 (04:29→18:23)
[2018-04-03] MEDS: Levothyroxine 75 MCG Tablet PO SCH (05:03)
[2018-04-03] MEDS ORDERED: Diatrizoate Meglum/Diatrizoate Sod Liq 120 ML Bottle (for RAD diag) NG/OG ONE (09:29)
[2018-04-03 09:56] LABS: Hematocrit 34.4 % (35.0-46.0); Hemoglobin 11.5 gm/dL (11.6-15.3); Mean Corpuscular HGB Conc 33.5 % (32.0-36.0); Mean Corpuscular Hemoglobin 31.6 pg (27.0-34.0); Mean Corpuscular Volume 94.4 fL (80.0-100.0); Mean Platelet Volume 8.1 fL (7.0-11.0); Platelet Count 372 th/mm3 (150-450); Red Blood Count 3.64 mil/mm3 (4.00-5.30); Red Cell Distribution Width 13.1 % (11.6-17.2); White Blood Count 15.7 th/mm3 (4.0-11.0)
[2018-04-03 10:28] LABS: Calcium 8.3 mg/dL (8.5-10.1); Carbon Dioxide 27.4 meq/L (21.0-32.0); Magnesium 2.4 mg/dL (1.5-2.5)
[2018-04-03 10:32] LABS: Potassium 2.7 meq/L (3.5-5.1)
[2018-04-03] MEDS: Senna/Docusate Sodium 8.6/50 MG Tablet PO SCH (11:51)
[2018-04-03] MEDS: Hydroxychloroquine 200 MG Tablet PO SCH (11:57)
[2018-04-03] MEDS: Famotidine 20 MG Tablet PO SCH (11:57)
[2018-04-03] MEDS: Folic Acid 1 MG Tablet PO SCH (11:57)
[2018-04-03] MEDS: Potassium Chlor 10 mEq Premix 10 MEQ/100 ML PIGGYBACK IV.SIG SCH ×2 (12:23→14:28)
[2018-04-03] MEDS ORDERED: Potassium Chlor 10 mEq Premix 10 MEQ/100 ML PIGGYBACK IV.SIG ONE (14:00)
--- NOTE | 2018-04-03 14:16 | P.PNIM ---
Subjective Interval history: Patient seen and examined this morning PRIOR to studies ordered by surgery. At that time patient was comfortable but says overnight she had nausea and NGT was started with some relief of her abdominal distention. No active chest pain no cough no dizziness small amounts of flatus hypoKalemia - supplementing Physical Exam Vital signs: Vital Signs 04/02/18 16:00 04/02/18 20:00 04/03/18 00:00 Temperature 97.5 F L 98.4 F 98.5 F Pulse Rate 75 70 75 Respiratory Rate 16 18 18 Blood Pressure 151/65 H 126/61 137/64 Pulse Oximetry 92 L 93 L 95 04/03/18 04:00 04/03/18 08:15 Temperature 98.4 F 98.1 F Pulse Rate 75 74 Respiratory Rate 16 16 Blood Pressure 131/61 135/61 Pulse Oximetry 95 94 L Intake & Output 04/02/18 04/03/18 04/03/18 18:59 06:59 18:59 Intake Total 1511 / 1511 1190 / 1190 Output Total 100 / 100 1250 / 1250 Balance 1411 / 1411 -60 / -60 Weight 54.457 kg Intake: IV 1511 / 1511 950 / 950 D5W/1/2 NS Inj 1,000 ML @ 75 950 / 950 mls/hr IV.CONT .[id number] JODIE Rx# :[id number] NS Inj 1,000 ML @ 70 mls/hr IV. 750 / 750 CONT .[id number] JODIE Rx#:[id number] Levaquin 750 mg Premix Inj 150 150 / 150 ML @ 100 mls/hr IV.SIG Q24H JODIE Rx#:[id number] KCl 10 mEq Premix Inj 10 meq In 300 / 300 100 ml @ 100 mls/hr IV.SIG Q1H JODIE Rx#:[id number] KCl Inj 10 MEQ In NS Inj 1,000 311 / 311 ML @ 75 mls/hr IV.SIG .[id number] JODIE Rx#:[id number] Oral Supplement 240 / 240 Output: Gastric Drainage 100 / 100 1250 / 1250 Left Nare 100 / 100 Right Nare 1250 / 1250 Other: Post Void Residual 1,200 # Voids 1 Date of Last Bowel Movement 03/29/18 Narrative: Gen: NAD CVS: s1/2 Resp: improved aeration improved last 24hrs, no wheezing gi: soft, non tender, hernia palpable but not strangulated. ext: no edema or calf tenderness Results Labs CBC & Chem 7: 04/03/18 07:57 04/03/18 07:51 Labs: Microbiology 03/31/18 16:40 Blood - Peripheral Aerobic Blood Culture - Preliminary No growth in 3 days 03/31/18 16:40 Blood - Peripheral Anaerobic Blood Culture - Preliminary No growth in 3 days 03/31/18 16:50 Blood - Peripheral Aerobic Blood Culture - Preliminary No growth in 3 days 03/31/18 16:50 Blood - Peripheral Anaerobic Blood Culture - Preliminary No growth in 3 days 04/02/18 17:15 Urine - Clean Catch Urine Streptococcus pneumoniae Antigen ( M - Final Presumptive negative for streptococcus pneumoniae antigen, suggesting no current or recent infection. Infection due to Streptococcus pneumoniae cannot be ruled out since the antigen present in the sample may be below the detection limit of the test. 04/02/18 17:15 Urine - Clean Catch Urine Legionella Antigen - Final Presumptive negative for Legionella pneumophila serogroup 1 antigen in urine, suggesting no recent or recurrent infection. Infection due to Legionella cannot be ruled out since other serogroups and species may cause disease, antigen may not be present in urine in early infection, and the level of antigen present in the urine may be below the detection limit of the test. Imaging Imaging: Impressions Abdomen X-Ray 04/02/18 00:00 CONCLUSION: Nonspecific bowel gas pattern. Nasogastric tube is not visualized. Assessment and Plan Plan 77-year-old female with a past medical history significant for rheumatoid arthritis, hypothyroidism and GERD presents to the emergency department for the evaluation of productive cough, fever/chills and nausea/vomiting found to have inguinal hernia on examination evaluated by surgery with reduction but continues to have episodes of nausea and vomiting. General surgery: Incarcerated inguinal hernia - CT of the abdomen/pelvis shows right inguinal hernia containing fat and small bowel loops with decompressed distal small bowel and dilated loops of small bowel proximal to that point. General surgery consulted and following - npo status and IVF hydration with D5Ns - patient went for GI study as per surgery and had episode of nausea and multiple emesis episodes. Patient returned to floor and will continue NPO status for now. will inform surgery and re-evaluate. nephrology: hyPOkalemia - supplement with 10meQ in NS - supplement with 3 10meQ of K infusion via IV since nausea/vomiting Infectious disease: Bilateral pneumonia - Chest x-ray shows bilateral pulmonary infiltrates, on IV Levaquin, switch to oral on discharge. endocrinology: Hypothyroidism -levothroxine FEN Per general surgery recommendations, npo with IVF Discharge once okay with general surgery but continues to be acutely ill. Progress Note: Quality VTE Deep Vein Thrombosis/Pulmonary Embolism Present on Admission: No
[2018-04-03] MEDS ORDERED: Lidocaine PF 1% Inj 5 ML Syringe OTHER ONE (22:06)
[2018-04-03] MEDS ORDERED: Phenylephrine/NS 1000 MCG/10ML Syringe IV.PUSH ONE (22:06)
[2018-04-03] MEDS ORDERED: Bupivacaine/Epinephrine PF Inj 0.5% 30 ML Vial ONE (22:09)
[2018-04-03] MEDS ORDERED: fentaNYL Citrate Inj 100 MCG/2 ML Ampul ONE (22:58)
[2018-04-03] MEDS ORDERED: Sugammadex Inj 200 MG/2 ML Vial IV.PUSH ONE (23:28)
[2018-04-03] MEDS ORDERED: *morphine SULFATE 4 MG/ML PERIprocedure ONLY ONE ×2 (23:32→23:47)
--- NOTE | 2018-04-03 23:48 | MP ---
cc: Lazaro De Santiago MD, Joseph D MD DATE OF OPERATION: 04/03/2018 PREOPERATIVE DIAGNOSIS: Incarcerated right femoral hernia. POSTOPERATIVE DIAGNOSIS: Incarcerated right femoral hernia. PROCEDURE PERFORMED: Reduction of incarcerated right femoral hernia with repair using modified Munir technique. ANESTHESIA: General. SURGEON: Lazaro De Santiago MD INDICATIONS: This is a 77-year-old female who was admitted to the hospital with pneumonia. She had an intermittently incarcerating right hernia. It was reduced on a daily basis and then today, she had some more nausea and vomiting and coughing from her pneumonia. She was evaluated by Dr. Castro and he asked me to step in and perform her surgery because he was involved with other patient care issues. DESCRIPTION OF PROCEDURE: The patient was taken to the operating room and placed in supine position. After anesthesia, her right groin and abdomen were prepped with Betadine. A timeout was done. She was given a gram of Ancef. We made an oblique incision overlying the inguinal region. It is noted I cannot reduce this femoral hernia. It is about 5-6 cm. Made an incision and dissected down through Taiwo's fascia, identifying the femoral hernia. It cannot be reduced. For this reason, I entered the inguinal canal and divide the inguinal ligament to facilitate exposure of the bowel and omentum that is incarcerated in this hernia. We were able to visualize the bowel, looks viable, and is replaced into the abdominal cavity through the open femoral canal. With this done, we then checked and she does not have an indirect defect or direct defect. I did not feel comfortable placing mesh in this repair because of the translocation of bacteria and for this reason, the area is then irrigated. We then reapproximate the conjoined tendon down to the inguinal ligament to close the femoral canal. The ilioinguinal nerve is sacrificed. This hernia repair was all done, accomplished with 0 Ethibond. We then closed the external oblique aponeurosis with a 2-0 Vicryl, Taiwo with a 3-0 Vicryl and skin with a 4-0 Vicryl. Steri-Strips were applied. Sterile bandage applied. The patient tolerated the procedure well and had no immediate postop complications. Lazaro De Santiago MD JDB/rw , 11:18 PM , 11:24 PM
[2018-04-04] MEDS: Famotidine 20 MG Tablet PO SCH ×3 (00:41→21:07)
[2018-04-04] MEDS: Senna/Docusate Sodium 8.6/50 MG Tablet PO SCH ×3 (00:41→21:07)
[2018-04-04] MEDS: Potassium Chloride Inj 10 MEQ in Sod Chloride 0.9% Inj 1,000 ML IV.SIG SCH ×2 (04:40→21:06)
[2018-04-04] MEDS: Levothyroxine 75 MCG Tablet PO SCH (06:07)
[2018-04-04 07:28] LABS: Hematocrit 33.2 % (35.0-46.0); Mean Corpuscular HGB Conc 33.1 % (32.0-36.0); Mean Corpuscular Hemoglobin 31.4 pg (27.0-34.0); Mean Corpuscular Volume 94.7 fL (80.0-100.0); Mean Platelet Volume 7.9 fL (7.0-11.0); Platelet Count 355 th/mm3 (150-450); White Blood Count 17.3 th/mm3 (4.0-11.0)
[2018-04-04 08:00] LABS: Calcium 7.4 mg/dL (8.5-10.1); Magnesium 2.3 mg/dL (1.5-2.5); Potassium 3.9 meq/L (3.5-5.1)
[2018-04-04 08:35] LABS: Albumin 2.1 g/dL (3.4-5.0); Calcium-Albumin Corrected 8.9 mg/dL (8.5-10.1)
[2018-04-04] MEDS: Hydroxychloroquine 200 MG Tablet PO SCH (09:54)
[2018-04-04] MEDS: Folic Acid 1 MG Tablet PO SCH (09:54)
[2018-04-04] MEDS: Dextrose 5%/NaCl 0.45% Inj 1,000 ML IV.CONT SCH ×2 (10:41→21:06)
--- NOTE | 2018-04-04 11:09 | P.PNGS ---
Subjective Patient reports: feels better, flatus, no bowel movement Physical Exam Vital signs: Vital Signs 04/03/18 16:27 04/03/18 20:00 04/03/18 23:20 Temperature 97.7 F 97.4 F L 98.3 F Pulse Rate 80 51 L 76 Respiratory Rate 16 20 28 H Blood Pressure 129/63 129/62 109/54 L Pulse Oximetry 93 L 95 95 04/03/18 23:30 04/03/18 23:45 04/04/18 00:00 Temperature 98.1 F 98.4 F Pulse Rate 93 H 71 74 Respiratory Rate 20 20 16 Blood Pressure 119/57 L 124/58 L 111/53 L Pulse Oximetry 98 99 98 04/04/18 00:02 04/04/18 00:03 04/04/18 04:00 Temperature 98.7 F Pulse Rate 77 Respiratory Rate 20 20 17 Blood Pressure 123/54 L Pulse Oximetry 95 04/04/18 07:45 Temperature 98.1 F Pulse Rate 78 Respiratory Rate 23 Blood Pressure 105/71 Pulse Oximetry 95 Intake & Output 04/03/18 04/04/18 04/04/18 18:59 06:59 18:59 Intake Total 850 / 850 1809 / 1809 Output Total 1055 / 1055 Balance 850 / 850 754 / 754 Weight 57 kg Intake: IV 850 / 850 689 / 689 D5W/1/2 NS Inj 1,000 ML @ 75 400 / 400 0 / 0 mls/hr IV.CONT .[id number] [facility] Rx# :[id number] Levaquin 750 mg Premix Inj 150 150 / 150 ML @ 100 mls/hr IV.SIG Q24H [facility] Rx#:[id number] KCl 10 mEq Premix Inj 10 meq In 300 / 300 100 ml @ 100 mls/hr IV.SIG ONCE ONE Rx#:[id number] KCl Inj 10 MEQ In NS Inj 1,000 689 / 689 ML @ 75 mls/hr IV.SIG .[id number] [facility] Rx#:[id number] Oral 120 / 120 Anesthesia Amount 1000 / 1000 Output: Urine 150 / 150 Estimated Blood Loss 5 / 5 Urine Amount (Catheter) 100 / 100 Indwelling Urethral Catheter 100 / 100 Gastric Drainage 800 / 800 Right Nare 800 / 800 Other: Date of Last Bowel Movement 03/29/18 - Routine Abdominal Exam Present: soft (right groin incision c/d/i) - Urinary Catheter Management Indwelling Urethral Catheter Cath placed during this visit: no Results - Labs 04/04/18 06:44 04/04/18 06:44 Laboratory Results - last 24 hr 04/03/18 04/04/18 04/04/18 19:42 06:44 06:44 WBC 17.3 H RBC 3.50 L Hgb 11.0 L Hct 33.2 L MCV 94.7 MCH 31.4 MCHC 33.1 RDW 13.0 Plt Count 355 MPV 7.9 Sodium 143 Potassium 3.9 D Chloride 106 Carbon Dioxide 28.0 Anion Gap 9 BUN 14 Creatinine 0.73 Estimated GFR 78 L POC Glucose 93 Random Glucose 110 H Calcium 7.4 L* D Calcium Adj for Albumin 8.9 Magnesium 2.3 Albumin 2.1 L - Imaging Imaging: ITS Impressions Abdomen/Pelvis CT 03/31/18 15:59 CONCLUSION: 1. Right inguinal hernia containing fat and a small bowel loop with decompressed distal small bowel and dilated loops of small bowel proximal to this point. A small amount of free fluid is seen in the pelvis. Possibility of an incarcerated hernia should be considered. Chest X-Ray 03/31/18 18:24 CONCLUSION: Bilateral pulmonary infiltrates. Treatment and follow-up to resolution using serial radiographs. Abdomen X-Ray 04/02/18 00:00 CONCLUSION: Nonspecific bowel gas pattern. Nasogastric tube is not visualized. Assessment and Plan - Plan 77 year old female with pneumonia; RIGHT inguinal hernia---s/p open primary repair femoral hernia POD 1 -plan ice chips possble d/c ng tomorrow oob ng sxn dvt ppx
--- NOTE | 2018-04-04 12:28 | P.PNIM ---
Subjective Interval history: pt seen and examined at the bedside last night had urgent surgery for reduction of the hernia feels better today and still has NG tube to suction Physical Exam Vital signs: Vital Signs 04/03/18 16:27 04/03/18 20:00 04/03/18 23:20 Temperature 97.7 F 97.4 F L 98.3 F Pulse Rate 80 51 L 76 Respiratory Rate 16 20 28 H Blood Pressure 129/63 129/62 109/54 L Pulse Oximetry 93 L 95 95 04/03/18 23:30 04/03/18 23:45 04/04/18 00:00 Temperature 98.1 F 98.4 F Pulse Rate 93 H 71 74 Respiratory Rate 20 20 16 Blood Pressure 119/57 L 124/58 L 111/53 L Pulse Oximetry 98 99 98 04/04/18 00:02 04/04/18 00:03 04/04/18 04:00 Temperature 98.7 F Pulse Rate 77 Respiratory Rate 20 20 17 Blood Pressure 123/54 L Pulse Oximetry 95 04/04/18 07:45 Temperature 98.1 F Pulse Rate 78 Respiratory Rate 23 Blood Pressure 105/71 Pulse Oximetry 95 Intake & Output 04/03/18 04/04/18 04/04/18 18:59 06:59 18:59 Intake Total 850 / 850 1809 / 1809 Output Total 1055 / 1055 Balance 850 / 850 754 / 754 Weight 57 kg Intake: IV 850 / 850 689 / 689 D5W/1/2 NS Inj 1,000 ML @ 75 400 / 400 0 / 0 mls/hr IV.CONT .[id number] [facility] Rx# :[id number] Levaquin 750 mg Premix Inj 150 150 / 150 ML @ 100 mls/hr IV.SIG Q24H [facility] Rx#:[id number] KCl 10 mEq Premix Inj 10 meq In 300 / 300 100 ml @ 100 mls/hr IV.SIG ONCE ONE Rx#:[id number] KCl Inj 10 MEQ In NS Inj 1,000 689 / 689 ML @ 75 mls/hr IV.SIG .[id number] [facility] Rx#:[id number] Oral 120 / 120 Anesthesia Amount 1000 / 1000 Output: Urine 150 / 150 Estimated Blood Loss 5 / 5 Urine Amount (Catheter) 100 / 100 Indwelling Urethral Catheter 100 / 100 Gastric Drainage 800 / 800 Right Nare 800 / 800 Other: Date of Last Bowel Movement 03/29/18 Narrative: Gen: NAD CVS: s1/2. rrr Resp:CTA bilaterally. no wheeze. gi: soft, non tender, post surgical scar RLQ without guarding, rebound. no distention. + bowel sounds ext: no edema or calf tenderness Urinary Catheter Management Indwelling Urethral Catheter: Cath placed during this visit: no Results Labs CBC & Chem 7: 04/04/18 06:44 04/04/18 06:44 Labs: Microbiology 03/31/18 16:40 Blood - Peripheral Aerobic Blood Culture - Preliminary No growth in 4 days 03/31/18 16:40 Blood - Peripheral Anaerobic Blood Culture - Preliminary No growth in 4 days 03/31/18 16:50 Blood - Peripheral Aerobic Blood Culture - Preliminary No growth in 4 days 03/31/18 16:50 Blood - Peripheral Anaerobic Blood Culture - Preliminary No growth in 4 days Assessment and Plan Plan 77-year-old female with a past medical history significant for rheumatoid arthritis, hypothyroidism and GERD presents to the emergency department for the evaluation of productive cough, fever/chills and nausea/vomiting found to have inguinal hernia on examination evaluated by surgery with reduction now s/p surgical reduction on 04/03. General surgery: Incarcerated inguinal hernia - CT of the abdomen/pelvis shows right inguinal hernia containing fat and small bowel loops with decompressed distal small bowel and dilated loops of small bowel proximal to that point. General surgery consulted and following - npo status and IVF hydration with D5Ns -patient s/p urgent hernia reduction 04/03 by surgery - DC ngt likely tomorrow. continue bowel rest for 24hrs continue [id number] in fluid and d/c when eating PO Infectious disease: Bilateral pneumonia - Chest x-ray shows bilateral pulmonary infiltrates, on IV Levaquin, switch to oral on discharge. (04/01 -->) endocrinology: Hypothyroidism -levothroxine FEN Per general surgery recommendations, npo with IVF Discharge once okay with general surgery but continues to be acutely ill. Progress Note: Quality VTE Deep Vein Thrombosis/Pulmonary Embolism Present on Admission: No
--- NOTE | 2018-04-04 12:41 | FL ---
EXAM DATE: 04/04/2018 11:48 AM EST AGE/SEX: 77 years / Female INDICATIONS: Abdominal pain CLINICAL DATA: This is the patient's subsequent encounter. Patient reports that signs and symptoms h ave been present for 4 - 6 days and indicates a pain score of 4/10. MEDICAL/SURGICAL HISTORY: None. None. COMPARISON: [facility] [place] 1V KUB[place]/2018. . FLUORO TIME: 0 IMAGE COUNT: 19 RADIATION DOSE: 0 CAKE CONTRAST: FINDINGS: Preliminary film is unremarkable. The stomach is grossly unremarkable. Examination of the small bowel demonstrates normal mucosal pattern involving the jejunum and ileum. There is no evidence of mass or obstruction. No intraluminal filling defects are identified. Small bowel transit time is normal at minutes. Fluoroscopy of the abdomen and terminal ileum demonstrates no abnormality. On the 24-hour film contrast passes easily into the colon without obstruction CONCLUSION: No obstruction. Nasogastric tube in good position. Electronically signed by: Praveen Hutton MD Board Certified Radiologist 04/04/2018 12:40 PM EST
[2018-04-04] MEDS ORDERED: Morphine Sulfate Inj 2 MG/ML Vial IV.PUSH PRN (16:54)
--- NOTE | 2018-04-04 19:08 | XR ---
EXAM DATE: 04/04/2018 6:49 PM EST AGE/SEX: 77 years / Female INDICATIONS: Chest pain. Shortness of breath. CLINICAL DATA: This is the patient's subsequent encounter. Patient reports that signs and symptoms h ave been present for 4 - 6 days and indicates a pain score of 0/10. MEDICAL/SURGICAL HISTORY: None. None. COMPARISON: [facility] – [place], CHEST 1V SINGLE AP, 03/31/2018. . FINDINGS: The lungs are symmetrically aerated. There are patchy consolidative infiltrates in the medial lower r ight lung and lateral left lower lung. No evidence of pneumothorax. Both hemidiaphragms remain well d elineated. The heart is normal size. Gastric tube side-port project within the stomach. Osseous struc tures are osteopenic. CONCLUSION: Patchy bilateral lower lung infiltrates. Electronically signed by: David Jorge MD Board Certified Radiologist 04/04/2018 7:07 PM EST
[2018-04-05] MEDS: Levothyroxine 75 MCG Tablet PO SCH (04:59)
[2018-04-05] MEDS: Potassium Chloride Inj 10 MEQ in Sod Chloride 0.9% Inj 1,000 ML IV.SIG SCH ×2 (06:28→20:27)
--- NOTE | 2018-04-05 08:31 | P.PNIM ---
Subjective Interval history: Pt seen and examined this morning on follow up says her belly feels well today and no complaints NG tube inplace appeared red but spoke to RN and patient had snack overnight ( Popsicle -red) No reported nausea or vomiting surgery to f/u today and anticipate d/c of NGT today Physical Exam Vital signs: Vital Signs 04/04/18 11:45 04/04/18 15:14 04/04/18 16:00 Temperature 97.7 F 98.1 F Pulse Rate 74 75 Respiratory Rate 19 16 Blood Pressure 137/65 134/63 Pulse Oximetry 95 95 97 04/04/18 20:00 04/05/18 00:00 04/05/18 04:00 Temperature 98.1 F 98.4 F 98.5 F Pulse Rate 79 77 77 Respiratory Rate 17 17 18 Blood Pressure 129/58 L 122/58 L 136/61 Pulse Oximetry 95 96 94 L 04/05/18 08:00 Temperature 98.8 F Pulse Rate 80 Respiratory Rate 18 Blood Pressure 127/64 Pulse Oximetry 96 Intake & Output 04/04/18 04/05/18 04/05/18 18:59 06:59 18:59 Intake Total 1155 / 1155 1005 / 1005 Output Total 300 / 300 1000 / 1000 Balance 855 / 855 5 / 5 Weight 56.8 kg Intake: IV 1155 / 1155 1005 / 1005 Levaquin 750 mg Premix Inj 150 150 / 150 ML @ 100 mls/hr IV.SIG Q24H [facility] Rx#:[id number] KCl Inj 10 MEQ In NS Inj 1,000 1005 / 1005 1005 / 1005 ML @ 75 mls/hr IV.SIG .[id number] [facility] Rx#:[id number] Output: Urine Amount (Catheter) 300 / 300 Indwelling Urethral Catheter 300 / 300 Gastric Drainage 1000 / 1000 Right Nare 1000 / 1000 Other: Date of Last Bowel Movement 03/29/18 Narrative: Gen: NAD CVS: s1/s2. rrr heent: NG in RIGHT nare w/o bleeding. Resp:CTA bilaterally. no wheeze. gi: soft, non tender, post surgical scar RLQ without guarding, rebound. no distention. + bowel sounds, no hematoma palpable, no brusing ext: no edema or calf tenderness Urinary Catheter Management Indwelling Urethral Catheter: Cath placed during this visit: no Results Labs CBC & Chem 7: 04/04/18 06:44 04/04/18 06:44 Labs: Microbiology 03/31/18 16:40 Blood - Peripheral Aerobic Blood Culture - Preliminary No growth in 4 days 03/31/18 16:40 Blood - Peripheral Anaerobic Blood Culture - Preliminary No growth in 4 days 03/31/18 16:50 Blood - Peripheral Aerobic Blood Culture - Preliminary No growth in 4 days 03/31/18 16:50 Blood - Peripheral Anaerobic Blood Culture - Preliminary No growth in 4 days Imaging Imaging: Impressions Small Bowel X-Ray 04/03/18 00:00 CONCLUSION: No obstruction. Nasogastric tube in good position. Chest X-Ray 04/04/18 00:00 CONCLUSION: Patchy bilateral lower lung infiltrates. Assessment and Plan Plan 77-year-old female with a past medical history significant for rheumatoid arthritis, hypothyroidism and GERD presents to the emergency department for the evaluation of productive cough, fever/chills and nausea/vomiting found to have inguinal hernia on examination evaluated by surgery with reduction now s/p surgical reduction on 04/03. General surgery: Incarcerated inguinal hernia - CT of the abdomen/pelvis shows right inguinal hernia containing fat and small bowel loops with decompressed distal small bowel and dilated loops of small bowel proximal to that point. General surgery consulted and following -patient s/p urgent hernia reduction 04/03 by surgery - NGT as per surgery likely discontinue today after they evaluate. - when tolerating PO will stop IVF hydration and monitor - ambulation/PT - Discontinue armstrong catheter Infectious disease: Bilateral pneumonia - Chest x-ray shows bilateral pulmonary infiltrates, on IV Levaquin, switch to oral on discharge. (04/01 -->) endocrinology: Hypothyroidism -levothroxine FEN Per general surgery recommendations, npo with IVF Discharge once okay with general surgery but continues to be acutely ill. Progress Note: Quality VTE Deep Vein Thrombosis/Pulmonary Embolism Present on Admission: No
[2018-04-05] MEDS: Hydroxychloroquine 200 MG Tablet PO SCH (09:49)
[2018-04-05] MEDS: Famotidine 20 MG Tablet PO SCH ×2 (09:49→20:26)
[2018-04-05] MEDS: Dextrose 5%/NaCl 0.45% Inj 1,000 ML IV.CONT SCH ×2 (09:49→21:52)
[2018-04-05] MEDS: Senna/Docusate Sodium 8.6/50 MG Tablet PO SCH ×2 (09:49→20:28)
[2018-04-05] MEDS: Folic Acid 1 MG Tablet PO SCH (09:49)
[2018-04-05 14:46] LABS: Hematocrit 33.1 % (35.0-46.0); Mean Corpuscular HGB Conc 33.2 % (32.0-36.0); Mean Corpuscular Volume 93.5 fL (80.0-100.0); Mean Platelet Volume 7.5 fL (7.0-11.0); Platelet Count 368 th/mm3 (150-450); Red Blood Count 3.54 mil/mm3 (4.00-5.30); Red Cell Distribution Width 13.1 % (11.6-17.2); White Blood Count 15.7 th/mm3 (4.0-11.0)
[2018-04-05 15:21] LABS: Calcium 7.2 mg/dL (8.5-10.1); Carbon Dioxide 26.9 meq/L (21.0-32.0); Magnesium 2.4 mg/dL (1.5-2.5); Potassium 3.2 meq/L (3.5-5.1)
[2018-04-05 15:27] LABS: Calcium-Albumin Corrected 8.8 mg/dL (8.5-10.1)
--- NOTE | 2018-04-05 18:22 | P.PNGS ---
Subjective Patient reports: feels better, pain is less, tolerating liquids well, flatus, bowel movement Interval history: Add my header DAILY PROGRESS NOTE FOR SURGICAL ATTENDING, DR. MARY VELASQUEZ Patient tolerating clears with NG tube in place Has bowel movement She says she feels a lot better Minimal postop discomfort Physical Exam Vital signs: Vital Signs 04/04/18 20:00 04/05/18 00:00 04/05/18 04:00 Temperature 98.1 F 98.4 F 98.5 F Pulse Rate 79 77 77 Respiratory Rate 17 17 18 Blood Pressure 129/58 L 122/58 L 136/61 Pulse Oximetry 95 96 94 L 04/05/18 08:00 04/05/18 12:00 04/05/18 16:00 Temperature 98.8 F 98.0 F 97.8 F Pulse Rate 80 73 69 Respiratory Rate 18 18 18 Blood Pressure 127/64 143/65 H 137/65 Pulse Oximetry 96 95 97 Intake & Output 04/04/18 04/05/18 04/05/18 18:59 06:59 18:59 Intake Total 1155 / 1155 1005 / 1005 Output Total 300 / 300 1000 / 1000 400 / 400 Balance 855 / 855 5 / 5 -400 / -400 Weight 56.8 kg Intake: IV 1155 / 1155 1005 / 1005 Levaquin 750 mg Premix Inj 150 150 / 150 ML @ 100 mls/hr IV.SIG Q24H [facility] Rx#:[id number] KCl Inj 10 MEQ In NS Inj 1,000 1005 / 1005 1005 / 1005 ML @ 75 mls/hr IV.SIG .[id number] [facility] Rx#:[id number] Output: Urine Amount (Catheter) 300 / 300 400 / 400 Indwelling Urethral Catheter 300 / 300 400 / 400 Gastric Drainage 1000 / 1000 Right Nare 1000 / 1000 Other: Date of Last Bowel Movement 03/29/18 04/05/18 # Incontinent Bowel Movements 1 Narrative: Alert and awake NG tube in place removed Abdomen soft bandage intact right groin from femoral hernia repair Ambulating halls - Urinary Catheter Management Indwelling Urethral Catheter Cath placed during this visit: no Reason for continuing: Hourly intake/output Results - Labs 04/05/18 13:38 04/05/18 13:38 Laboratory Results - last 24 hr 04/05/18 04/05/18 13:38 13:38 WBC 15.7 H RBC 3.54 L Hgb 11.0 L Hct 33.1 L MCV 93.5 MCH 31.0 MCHC 33.2 RDW 13.1 Plt Count 368 MPV 7.5 Sodium 144 Potassium 3.2 L Chloride 108 H Carbon Dioxide 26.9 Anion Gap 9 BUN 18 Creatinine 0.66 Estimated GFR 87 L Random Glucose 81 Calcium 7.2 L* Calcium Adj for Albumin 8.8 Magnesium 2.4 Albumin 2.0 L - Imaging Imaging: ITS Impressions Abdomen/Pelvis CT 03/31/18 15:59 CONCLUSION: 1. Right inguinal hernia containing fat and a small bowel loop with decompressed distal small bowel and dilated loops of small bowel proximal to this point. A small amount of free fluid is seen in the pelvis. Possibility of an incarcerated hernia should be considered. Abdomen X-Ray 04/02/18 00:00 CONCLUSION: Nonspecific bowel gas pattern. Nasogastric tube is not visualized. Small Bowel X-Ray 04/03/18 00:00 CONCLUSION: No obstruction. Nasogastric tube in good position. Chest X-Ray 04/04/18 00:00 CONCLUSION: Patchy bilateral lower lung infiltrates. Assessment and Plan - Assessment (1) Incarcerated femoral hernia Code(s): K41.30 - Unilateral femoral hernia, with obstruction, without gangrene , not specified as recurrent Status: Acute (2) Status post hernia repair Code(s): Z98.890 - Other specified postprocedural states; Z87.19 - Personal history of other diseases of the digestive system Status: Acute (3) Bilateral pneumonia Code(s): J18.9 - Pneumonia, unspecified organism Status: Acute - Plan 77-year-old female status post reduction and repair of incarcerated right femoral hernia Today we pulled her NG tube Advance diet Anticipate discharge in a day or 2 unless she requires further hospitalization to treat her double pneumonia - Attending Attestation NOTE FOR SURGICAL ATTENDING, DR. MARY VELASQUEZ I attest that I had a [id number] encounter with the patient on the same day, and personally performed and documented my assessment and findings in the medical record. The following services were provided during this hospital visit: Chart data review, vital sign assessments/reviewing monitor data Review of consultations notes if present. Medication orders/review and/or management Ordering and/or reviewing lab tests Ordering and/or interpreting/reviewing x-rays and/or diagnostic studies Care of the patient and discussion of the patient with the care team Documentation time To help prompt me to consider important information that might be impacting today's encounter and assessment, Information from prior notes written by myself or my colleagues may have been "brought forward/copy and pasted" into today's note.
[2018-04-06] MEDS: Levothyroxine 75 MCG Tablet PO SCH (05:14)
[2018-04-06] MEDS: Folic Acid 1 MG Tablet PO SCH (08:03)
[2018-04-06] MEDS: Hydroxychloroquine 200 MG Tablet PO SCH (08:03)
[2018-04-06] MEDS: Famotidine 20 MG Tablet PO SCH (08:03)
[2018-04-06] MEDS: Senna/Docusate Sodium 8.6/50 MG Tablet PO SCH (08:04)
--- NOTE | 2018-04-06 11:30 | P.PNGS ---
Subjective Interval history: Up to chair Did not really like her dinner last night but no nausea Pain controlled Physical Exam Vital signs: Vital Signs 04/05/18 12:00 04/05/18 16:00 04/06/18 00:00 Temperature 98.0 F 97.8 F 98.6 F Pulse Rate 73 69 70 Respiratory Rate 18 18 18 Blood Pressure 143/65 H 137/65 135/61 Pulse Oximetry 95 97 93 L 04/06/18 04:00 04/06/18 08:00 Temperature 98.4 F 98.2 F Pulse Rate 73 71 Respiratory Rate 20 18 Blood Pressure 141/61 H 138/63 Pulse Oximetry 94 L 93 L Intake & Output 04/05/18 04/06/18 04/06/18 18:59 06:59 18:59 Intake Total 150 / 150 1905 / 1905 1005 / 1005 Output Total 400 / 400 Balance -250 / -250 1905 / 1905 1005 / 1005 Intake: IV 150 / 150 1005 / 1005 1005 / 1005 Levaquin 750 mg Premix Inj 150 150 / 150 ML @ 100 mls/hr IV.SIG Q24H [facility] Rx#:[id number] KCl Inj 10 MEQ In NS Inj 1,000 1005 / 1005 1005 / 1005 ML @ 75 mls/hr IV.SIG .[id number] [facility] Rx#:[id number] Oral 900 / 900 Output: Urine Amount (Catheter) 400 / 400 Indwelling Urethral Catheter 400 / 400 Other: # Voids 1 Date of Last Bowel Movement 04/05/18 04/05/18 04/05/18 # Bowel Movements 1 # Incontinent Bowel Movements 1 Narrative: Alert and awkae Abd: soft; RLQ dressing c/d/i; non tender; non distended - Urinary Catheter Management Indwelling Urethral Catheter Cath placed during this visit: yes, but has since been removed by the nurse Reason for continuing: Hourly intake/output Removal date: 03/29/18 Removal time: 15:00 Results - Labs 04/05/18 13:38 04/05/18 13:38 Laboratory Results - last 24 hr 04/05/18 04/05/18 13:38 13:38 WBC 15.7 H RBC 3.54 L Hgb 11.0 L Hct 33.1 L MCV 93.5 MCH 31.0 MCHC 33.2 RDW 13.1 Plt Count 368 MPV 7.5 Sodium 144 Potassium 3.2 L Chloride 108 H Carbon Dioxide 26.9 Anion Gap 9 BUN 18 Creatinine 0.66 Estimated GFR 87 L Random Glucose 81 Calcium 7.2 L* Calcium Adj for Albumin 8.8 Magnesium 2.4 Albumin 2.0 L - Imaging Imaging: ITS Impressions Abdomen/Pelvis CT 03/31/18 15:59 CONCLUSION: 1. Right inguinal hernia containing fat and a small bowel loop with decompressed distal small bowel and dilated loops of small bowel proximal to this point. A small amount of free fluid is seen in the pelvis. Possibility of an incarcerated hernia should be considered. Abdomen X-Ray 04/02/18 00:00 CONCLUSION: Nonspecific bowel gas pattern. Nasogastric tube is not visualized. Small Bowel X-Ray 04/03/18 00:00 CONCLUSION: No obstruction. Nasogastric tube in good position. Chest X-Ray 04/04/18 00:00 CONCLUSION: Patchy bilateral lower lung infiltrates. Assessment and Plan - Assessment (1) Incarcerated femoral hernia Code(s): K41.30 - Unilateral femoral hernia, with obstruction, without gangrene , not specified as recurrent Status: Acute Plan: 77 year old female with pneumonia; RIGHT femoral hernia repair ---POD3 -Regular diet -Pain control -Continue treatment for pneumonia -Potential DC later this afternoon if tolerated diet -Rx for pain on chart (2) Status post hernia repair Code(s): Z98.890 - Other specified postprocedural states; Z87.19 - Personal history of other diseases of the digestive system Status: Acute (3) Bilateral pneumonia Code(s): J18.9 - Pneumonia, unspecified organism Status: Acute
--- NOTE | 2018-04-06 11:59 | P.DS ---
DS: Providers Date of admission: 03/31/18 21:29 Primary care physician: No Primary Care Physician Consults: 03/31/18 23:08 Consult to General Surgery Routine Consulting Provider: Fernando Castro Instructional Assistant:: Lazaro De Santiago Patient known to:: Lazaro Anyi Reason for Consultation: inguinal hernia s/p reduction Notified:: Service Spoke with:: isha Date Notified:: 03/31/18 Time Notified:: 23:37 Ordering Provider: MARTÍN DS: Diagnosis Discharge Diagnosis (1) Incarcerated femoral hernia: Status: Acute (2) Status post hernia repair: Status: Acute (3) Bilateral pneumonia: Status: Acute DS: Summary 77-year-old female with a past medical history significant for rheumatoid arthritis, hypothyroidism and GERD presents to the emergency department for the evaluation of productive cough, fever/chills and nausea/vomiting found to have inguinal hernia on examination evaluated by surgery with reduction now s/p surgical reduction on 04/03. General surgery: Incarcerated inguinal hernia - CT of the abdomen/pelvis shows right inguinal hernia containing fat and small bowel loops with decompressed distal small bowel and dilated loops of small bowel proximal to that point. General surgery consulted and following -patient s/p urgent hernia reduction 04/03 by surgery - NGT as per surgery likely discontinue today after they evaluate. - when tolerating PO will stop IVF hydration and monitor - ambulation/PT - Discontinue armstrong catheter Infectious disease: Bilateral pneumonia - Chest x-ray shows bilateral pulmonary infiltrates, on IV Levaquin, switch to oral on discharge. (04/01 -->) endocrinology: Hypothyroidism -levothroxine FEN Per general surgery recommendations, npo with IVF Discharge once okay with general surgery but continues to be acutely ill. Time Spent with Patient Total time spent providing and/or coordinating discharge services: > 30 minutes 77-year-old female with a past medical history significant for rheumatoid arthritis, hypothyroidism and GERD presents to the emergency department for the evaluation of productive cough, fever/chills and nausea/vomiting found to have inguinal hernia on examination evaluated by surgery with reduction now s/p surgical operative reduction on 04/03. General surgery: Incarcerated inguinal hernia - CT of the abdomen/pelvis shows right inguinal hernia containing fat and small bowel loops with decompressed distal small bowel and dilated loops of small bowel proximal to that point. General surgery consulted and following -patient s/p urgent hernia reduction 04/03 by surgery - patient tolerating PO diet without acute changes in pain. - discharge and outpatient surgical follow up recommended. Patient due to return to [place] within 1 week and recommend she have arrangement for followup with internal corrosion specialist once discharged and returned to [facility]. Infectious disease: Bilateral pneumonia - Chest x-ray shows bilateral pulmonary infiltrates, on IV Levaquin, switch to oral on discharge. (04/01 -->04/09 - Levaquin 750mg qD x 3 days on discharge endocrinology: Hypothyroidism -levothroxine Dispo: Discharge home Outpatient PMd follow up Dr. Ramiro Swartz in [place] Patient must request medical records for PMD review Recommend patient have PMD arrange for surgical follow up once back in [place] for hernia repair Plan discussed with patient at bedside Quality: VTE Deep Vein Thrombosis/Pulmonary Embolism Present on Admission: No Exam Narrative Exam Narrative: GI: soft, non tender, non distended, no guarding, no distention , no palpable mass Results Labs on day of discharge: Labs from last 24 hours 04/05/18 04/05/18 13:38 13:38 WBC 15.7 H RBC 3.54 L Hgb 11.0 L Hct 33.1 L MCV 93.5 MCH 31.0 MCHC 33.2 RDW 13.1 Plt Count 368 MPV 7.5 Sodium 144 Potassium 3.2 L Chloride 108 H Carbon Dioxide 26.9 Anion Gap 9 BUN 18 Creatinine 0.66 Estimated GFR 87 L Random Glucose 81 Calcium 7.2 L* Calcium Adj for Albumin 8.8 Magnesium 2.4 Albumin 2.0 L Impressions ITS Impressions Abdomen/Pelvis CT 03/31/18 15:59 CONCLUSION: 1. Right inguinal hernia containing fat and a small bowel loop with decompressed distal small bowel and dilated loops of small bowel proximal to this point. A small amount of free fluid is seen in the pelvis. Possibility of an incarcerated hernia should be considered. Abdomen X-Ray 04/02/18 00:00 CONCLUSION: Nonspecific bowel gas pattern. Nasogastric tube is not visualized. Small Bowel X-Ray 04/03/18 00:00 CONCLUSION: No obstruction. Nasogastric tube in good position. Chest X-Ray 04/04/18 00:00 CONCLUSION: Patchy bilateral lower lung infiltrates. Discharge Plan Discharge Disposition Patient Disposition: Discharge Home Discharge Condition Condition: Stable Discharge Order Discharge Orders: Discharge Order (Routine); Ordered 04/06/18 Ordered By: Helder Hogue Discharge Details Anticipated Discharge Date: 03/31/18 Discharge Comment: clear for discharge in afternoon if no pain or issues after meal. thanks! Physicians Team Primary Care Provider: Primary Care Kathy Bruner Attending Provider: Helder Hogue Other Providers: Lazaro De Santiago ; Surgeons,[facility] ; Fernando Castro Rxs /Orders / Referrals /Forms Prescriptions: New levofloxacin [Levaquin] 750 mg tablet 750 mg PO DAILY 3 Days Qty: 3 RF: 0 Continue folic acid 1 mg Tablet 5 mg PO DAILY RF: 0 ranitidine HCl 150 mg Capsule 150 mg PO BID RF: 0 hydroxychloroquine 200 mg Tablet 200 mg PO DAILY RF: 0 ibuprofen 600 mg Tablet 600 mg PO BID RF: 0 levothyroxine 75 mcg Capsule 75 mcg PO DAILY RF: 0 Referrals: Primary Care Kathy Bruner [Primary Care Provider] - See Instructions (Patient PMD in [place] is Ramiro Swartz. Please follow up within 7 days of returning to [place]. Please have referral for follow up with internal corrosion specialist after hernia repair ) Discharge Interventions Interventions: Discharge Planning - Case Management Last Done: 04/02/18 16:44 Status ED Status: Left Department
[2018-04-06] MEDS: Dextrose 5%/NaCl 0.45% Inj 1,000 ML IV.CONT SCH (12:56)
[2018-04-06] MEDS: Potassium Chloride Inj 10 MEQ in Sod Chloride 0.9% Inj 1,000 ML IV.SIG SCH (12:56)
[2018-04-06 13:13] VITALS: BP 119/56; PULSE 75; RESP 16; TEMP 97.6; O2SAT 95
== END 2018-04-06 14:44 | disposition home or self-care (01) | DRG 350 ==
LOC: NEPB 10:32 → NEDA 21:29 → NEDH 04-01 02:57 → H7ONC 04-01 13:50
PROVIDERS: ADMIT Internal Medicine; ATTEND Internal Medicine
DX: K21.9 Gastro-esophageal reflux disease without esophagitis; E87.6 Hypokalemia; K41.30 Unilateral femoral hernia, with obstruction, without gangrene, not specified as recurrent; E03.9 Hypothyroidism, unspecified; M06.9 Rheumatoid arthritis, unspecified; J18.9 Pneumonia, unspecified organism
CPT/HCPCS: 71010; 71045; 74000; 74018; 74177; 74250; 80048; 80053; 82040; 82948; 82962; 83605; 83690; 83735; 85025; 85027; 87040; 87275; 87276; 87449; 87804; 90761; 90765; 90767; 93005; 96361; 96365; 96367; 99285; J0690; J1100; J1956; J2250; J2270; J2370; J2405; J2543; J2704; J2765; J3010; J3480; J7030; J7120; Q9963; Q9967